=== PATIENT | female | born 1985 | race American Indian/Alaskan Native ===

== ENCOUNTER 2018-05-21 10:07 | Emergency (ER) | payer SELFPAY ==
--- NOTE | 2018-05-21 10:38 | EDM.PDOC ---
ED HPI GENERAL MEDICAL PROBLEM - General Chief Complaint: Abdominal Pain Stated Complaint: STOMACH PAINS [id number] Time Seen by Provider: 05/21/18 10:25 Source of Information: Reports: Patient History Limitations: Reports: No Limitations - History of Present Illness INITIAL COMMENTS - FREE TEXT/NARRATIVE: This 32 yo female patient reports to the ED with increased abdominal pain over the past 4 days. 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 The patient did have chemo and radiation after tumor removal. The patient reports she is normally on steroids, antibiotics and pain medications. The patient reports she recently moved to [place] from [place], but has not been able to establish a primary care facility. The patient reports she has been out of all of her medications for the past 4 days. The patient reports her bowel movements have been mostly mucous. The patient reports she does have an appointment established for next week, but could not wait any longer with her current pain. Duration: Day(s):, Constant, Getting Worse Location: Reports: Abdomen Quality: Reports: Ache, Sharp, Stabbing Severity: Severe Improves with: Reports: None Worsens with: Reports: None Context: Reports: Other Associated Symptoms: Reports: No Other Symptoms Upper Abdomen Pain Score (Numeric/FACES): 10 - Related Data Allergies Allergy/AdvReac Type Severity Reaction Status Date / Time iodine Allergy Rash Verified 05/21/18 11:37 ketorolac [From Toradol] Allergy Itching Verified 05/21/18 11:37 Home Meds: Home Meds Ciprofloxacin HCl [Cipro] 500 mg PO BID 05/21/18 [History] HYDROmorphone [Dilaudid] 2 mg PO Q8H PRN 05/21/18 [History] LORazepam [Ativan] 2 mg PO TID PRN 05/21/18 [History] Ondansetron [Zofran ODT] 4 mg PO Q8HR PRN 05/21/18 [History] fentaNYL [Fentanyl] 1 each TD .Q72HR 05/21/18 [History] metroNIDAZOLE [Flagyl] 500 mg PO QID 05/21/18 [History] ED ROS GENERAL - Review of Systems Review Of Systems: ROS reveals no pertinent complaints other than HPI. ED EXAM, GI/ABD - Physical Exam Exam: See Below Exam Limited By: No Limitations General Appearance: Alert, WD/WN, Moderate Distress Eyes: Bilateral: Normal Appearance, EOMI Ears: Normal External Exam, Normal Canal, Hearing Grossly Normal, Normal TMs Nose: Normal Inspection, Normal Mucosa, No Blood Throat/Mouth: Normal Inspection, Normal Lips, Normal Teeth, Normal Gums, Normal Oropharynx, Normal Voice, No Airway Compromise Head: Atraumatic, Normocephalic Neck: Normal Inspection, Supple, Non-Tender, Full Range of Motion Respiratory/Chest: No Respiratory Distress, Lungs Clear, Normal Breath Sounds, No Accessory Muscle Use, Chest Non-Tender Cardiovascular: Normal Peripheral Pulses, Regular Rate, Rhythm, No Edema, No Gallop, No JVD, No Murmur, No Rub GI/Abdominal Exam: Normal Bowel Sounds, Guarding, Tender (diffuse tenderness) (Female) Exam: Deferred Rectal (Female) Exam: Deferred Back Exam: Normal Inspection, Full Range of Motion, NT Extremities: Normal Inspection, Normal Range of Motion, Non-Tender, Normal Capillary Refill, No Pedal Edema Neurological: Alert, Oriented, CN II-XII Intact, Normal Cognition, Normal Gait, Normal Reflexes, No Motor/Sensory Deficits Psychiatric: Normal Affect, Normal Mood Skin Exam: Warm, Dry, Intact, Normal Color, No Rash Lymphatic: No Adenopathy Course - Vital Signs Last Recorded V/S: Last Vital Signs Temp 36.2 C 05/21/18 10:15 Pulse 87 05/21/18 10:15 Resp 18 05/21/18 10:15 BP 132/65 05/21/18 10:15 Pulse Ox 99 05/21/18 10:15 - Orders/Labs/Meds Orders: Active Orders 24 hr Category Date Time Status fentaNYL [Duragesic] Med 05/21/18 12:30 Ordered 100 mcg TRDERM Q72H Medication Orders Fentanyl (Duragesic) 100 mcg TRDERM Q72H [facility] Labs: Laboratory Tests 05/21/18 05/21/18 05/21/18 Range/Units 10:18 10:18 10:29 WBC (5.0-10.0) 10^3/uL RBC (4.2-5.4) 10^6/uL Hgb (12.0-16.0) g/dL Hct (37.0-47.0) % MCV (80-100) fL MCH (27.0-34.0) pg MCHC (33.0-35.0) g/dL Plt Count (150-450) 10^3/uL Neut % (Auto) (42.2-75.2) % Lymph % (Auto) (20.5-50.1) % Johnston % (Auto) (2-8) % Eos % (Auto) (1.0-3.0) % Baso % (Auto) (0.0-1.0) % Sodium (135-145) mmol/L Potassium (3.6-5.0) mmol/L Chloride (101-111) mmol/L Carbon Dioxide (21.0-31.0) mmol/L Anion Gap BUN (7-18) mg/dL Creatinine (0.6-1.3) mg/dL Est Cr Clr Drug Dosing mL/min Estimated GFR (MDRD) BUN/Creatinine Ratio Glucose (74-105) mg/dL Calcium (8.4-10.2) mg/dl Total Bilirubin (0.2-1.0) mg/dL AST (10-42) IU/L ALT (10-60) IU/L Alkaline Phosphatase (42-121) IU/L Ammonia 18 (11-35) umol/L Total Protein (6.7-8.2) g/dl Albumin (3.2-5.5) g/dl Globulin Albumin/Globulin Ratio Amylase (28-100) U/L Lipase (22-51) U/L Urine Color Yellow (YELLOW) Urine Appearance Clear (CLEAR) Urine pH 5.5 (5.0-9.0) Ur Specific [place] >= 1.030 (1.005-1.030) Urine Protein Negative (NEGATIVE) Urine Glucose (UA) Negative (NEGATIVE) Urine Ketones Negative (NEGATIVE) Urine Occult Blood Trace-intact H (NEGATIVE) Urine Nitrite Negative (NEGATIVE) Urine Bilirubin Negative (NEGATIVE) Urine Urobilinogen 0.2 (0.2-1.0) mg/dL Ur Leukocyte Esterase Negative (NEGATIVE) Urine RBC 5-10 H /HPF Urine WBC 0-5 (0-5/HPF) /HPF Ur Epithelial Cells Moderate H /HPF Urine Bacteria Few (0-FEW/HPF) /HPF Urine Mucus Moderate H /LPF Salicylates mg/dL Urine Opiates Screen Negative (NEGATIVE) Ur Oxycodone Screen Positive H (NEGATIVE) Urine Methadone Screen Negative (NEGATIVE) Acetaminophen ug/mL Ur Barbiturates Screen Negative (NEGATIVE) U Tricyclic Antidepress Negative (NEGATIVE) Ur Phencyclidine Scrn Negative (NEGATIVE) Ur Amphetamine Screen Negative (NEGATIVE) U Methamphetamines Scrn Negative (NEGATIVE) Urine MDMA Screen Negative (NEGATIVE) U Benzodiazepines Scrn Positive H (NEGATIVE) Urine Cocaine Screen Negative (NEGATIVE) U Marijuana (THC) Screen Negative (NEGATIVE) Ethyl Alcohol mg/dL 05/21/18 05/21/18 05/21/18 Range/Units 10:29 10:51 10:51 WBC 11.5 H (5.0-10.0) 10^3/uL RBC 4.72 (4.2-5.4) 10^6/uL Hgb 15.2 (12.0-16.0) g/dL Hct 46.5 (37.0-47.0) % MCV 98.5 (80-100) fL MCH 32.2 (27.0-34.0) pg MCHC 32.7 L (33.0-35.0) g/dL Plt Count 412 (150-450) 10^3/uL Neut % (Auto) 60.6 (42.2-75.2) % Lymph % (Auto) 32.8 (20.5-50.1) % Johnston % (Auto) 5.2 (2-8) % Eos % (Auto) 1.0 (1.0-3.0) % Baso % (Auto) 0.4 (0.0-1.0) % Sodium 138 (135-145) mmol/L Potassium 3.7 (3.6-5.0) mmol/L Chloride 101 (101-111) mmol/L Carbon Dioxide 24.0 (21.0-31.0) mmol/L Anion Gap 16.7 BUN 16 (7-18) mg/dL Creatinine 0.7 (0.6-1.3) mg/dL Est Cr Clr Drug Dosing 106.01 mL/min Estimated GFR (MDRD) > 60 BUN/Creatinine Ratio 22.85 Glucose 113 H (74-105) mg/dL Calcium 8.9 (8.4-10.2) mg/dl Total Bilirubin 0.4 (0.2-1.0) mg/dL AST 35 (10-42) IU/L ALT 46 (10-60) IU/L Alkaline Phosphatase 61 (42-121) IU/L Ammonia (11-35) umol/L Total Protein 7.4 (6.7-8.2) g/dl Albumin 4.1 (3.2-5.5) g/dl Globulin 3.3 Albumin/Globulin Ratio 1.24 Amylase 44 (28-100) U/L Lipase 43 (22-51) U/L Urine Color (YELLOW) Urine Appearance (CLEAR) Urine pH (5.0-9.0) Ur Specific [place] (1.005-1.030) Urine Protein (NEGATIVE) Urine Glucose (UA) (NEGATIVE) Urine Ketones (NEGATIVE) Urine Occult Blood (NEGATIVE) Urine Nitrite (NEGATIVE) Urine Bilirubin (NEGATIVE) Urine Urobilinogen (0.2-1.0) mg/dL Ur Leukocyte Esterase (NEGATIVE) Urine RBC /HPF Urine WBC (0-5/HPF) /HPF Ur Epithelial Cells /HPF Urine Bacteria (0-FEW/HPF) /HPF Urine Mucus /LPF Salicylates < 4 mg/dL Urine Opiates Screen (NEGATIVE) Ur Oxycodone Screen (NEGATIVE) Urine Methadone Screen (NEGATIVE) Acetaminophen < 10 ug/mL Ur Barbiturates Screen (NEGATIVE) U Tricyclic Antidepress (NEGATIVE) Ur Phencyclidine Scrn (NEGATIVE) Ur Amphetamine Screen (NEGATIVE) U Methamphetamines Scrn (NEGATIVE) Urine MDMA Screen (NEGATIVE) U Benzodiazepines Scrn (NEGATIVE) Urine Cocaine Screen (NEGATIVE) U Marijuana (THC) Screen (NEGATIVE) Ethyl Alcohol < 5 mg/dL Meds: Medications Generic Name Dose Route Start Last Admin Trade Name Freq PRN Reason Stop Dose Admin Fentanyl 100 mcg 05/21/18 12:30 Duragesic TRDERM Q72H MARCO Discontinued Medications Generic Name Dose Route Start Last Admin Trade Name Freq PRN Reason Stop Dose Admin Hydromorphone HCl 1 mg 05/21/18 10:39 05/21/18 10:47 Dilaudid IVPUSH 05/21/18 10:40 1 mg ONETIME ONE Administration Hydromorphone HCl 1 mg 05/21/18 11:05 05/21/18 11:14 Dilaudid IVPUSH 05/21/18 11:06 1 mg ONETIME ONE Administration Hydromorphone HCl 1 mg 05/21/18 12:03 05/21/18 12:12 Dilaudid IVPUSH 05/21/18 12:04 1 mg ONETIME ONE Administration Methylprednisolone Sodium Succinate 125 mg 05/21/18 10:39 05/21/18 10:47 Solu-Medrol IVPUSH 05/21/18 10:40 125 mg ONETIME ONE Administration Departure - Departure Time of Disposition: 12:31 Disposition: Home, Self-Care 01 Condition: Fair Clinical Impression: Abdominal pain Qualifiers: Abdominal location: generalized Qualified Code(s): R10.84 - Generalized abdominal pain Crohn's disease, acute Qualifiers: Digestive disease complication type: unspecified complication Qualified Code(s) : K50.919 - Crohn's disease, unspecified, with unspecified complications - Discharge Information *PRESCRIPTION DRUG MONITORING PROGRAM REVIEWED*: Not Applicable *COPY OF PRESCRIPTION DRUG MONITORING REPORT IN PATIENT ANNETTE: Not Applicable Instructions: Abdominal Pain, Adult, [id number] Forms: ED Department Discharge Care Plan Goals: The patient was advised of the examination, lab and CT results during the visit. The patient was given IV fluid, IV solumedrol and IV dilaudid while in the ED. Prior to discharge, a Fentanyl Patch was placed on the patient. The patient was given scripts for Cipro (500 mg) #14 to take 1 by mouth 2 times per day, Metronidazole (500 mg) to take 1 by mouth 4 times per day and Dilaudid (2 mg) #10 to take 1 by mouth every 8 hours as needed. If the patient has any additional symptoms or concerns, the patient should either return to the emergency department or visit her primary care facility. - My Orders Last 24 Hours: My Active Orders 05/21/18 12:30 fentaNYL [Duragesic] 100 mcg TRDERM Q72H - Assessment/Plan Last 24 Hours: My Active Orders 05/21/18 12:30 fentaNYL [Duragesic] 100 mcg TRDERM Q72H
[2018-05-21] MEDS ORDERED: HYDROmorphone 1 MG/ML Syringe IVPUSH ONE ×3 (10:39→12:03)
[2018-05-21] MEDS ORDERED: methylPREDNISolone Sodium Succinate 125 MG/2 ML SDV IVPUSH ONE (10:39)
[2018-05-21 11:21] LABS: ANION GAP 16.7; CHLORIDE,CL 101 mmol/L (101-111); SODIUM,NA 138 mmol/L (135-145)
[2018-05-21 11:43] LABS: ACETAMINOPHEN < 10 ug/mL
--- NOTE | 2018-05-21 12:28 | CT ---
Clinical history: 32-year-old 205 pound female "smoker" with lower abdominal pain. History total hysterectomy for "cervical cancer" ("12 pound pelvic mass removed"); recent hospitalization in [place]. Previous surgical history includes cholecystectomy and appendectomy. Strong family history (mother/father) "colon cancer". Scan technique: Volume acquisition of data unenhanced (history "turned purple" with IV contrast) CT scan abdomen and pelvis obtained while the patient was lying supine on the Siemens multi slice scanner [place], [place]. All data archived in the PACS system for storage, reformatting axial/sagittal/coronal planes and study. Interpretation: 1. Cholecystectomy. Hysterectomy 2. Unenhanced liver, stomach, spleen, pancreas, adrenal glands and kidneys/empty bladder unremarkable. No sign of urolithiasis or obstructive uropathy. 3. No ventral wall hernias, incarcerated bowel, mechanical obstruction, inflammatory "dirty" peritoneal fat, ascites or free air. 4. No pelvic or abdominal mass lesion. No mesenteric or retroperitoneal lymphadenopathy. Normal caliber abdominal aorta. 5. Lumbar spine unremarkable for age and size. 6. Normal cardiac silhouette. Lung bases clear. No free subdiaphragmatic air. CONCLUSION: No sign of malignancy (primary or metastatic); mechanical bowel obstruction; or acute peritonitis. No hernias. Cholecystectomy. Total hysterectomy.
[2018-05-21] MEDS ORDERED: fentaNYL 100 MCG/HR Transdermal Patch TRDERM SCH (12:30)
[2018-05-21] MEDS ORDERED: fentaNYL 50 MCG/HR Transdermal Patch TRDERM ONE (12:45)
== END 2018-05-21 12:50 | disposition home or self-care (01) ==
LOC: DL.ED 10:07
DX: K50.919 Crohn's disease, unspecified, with unspecified complications (principal); Z88.8 Allergy status to other drugs, medicaments and biological substances; Z79.899 Other long term (current) drug therapy
CPT/HCPCS: 36415; 74176; 80053; 80305-QW; 81001; 82140; 82150; 83690; 85025; 96374; 96375; 96376; 99284; A9270-GY; G0480; J1170; J2930

== ENCOUNTER 2018-06-05 11:07 | Emergency (ER) | payer SELFPAY ==
[2018-06-05] MEDS ORDERED: fentaNYL 100 MCG/2 ML SDV IVPUSH ONE (12:13)
[2018-06-05 12:55] LABS: ANION GAP 13.9; CHLORIDE,CL 104 mmol/L (101-111); SODIUM,NA 139 mmol/L (135-145)
--- NOTE | 2018-06-05 14:01 | CT ---
History: 33-year-old 205 pound female "smoker" who presents emergency Department with severe abdominal pain (history Crohn's disease and colitis) and CT scan 21 May 2018 revealed "no sign of malignancy, mechanical bowel obstruction or acute peritonitis. No hernias". Patient has history of appendectomy, cholecystectomy and hysterectomy ("cervical cancer"). Scan technique: Volume acquisition of data unenhanced CT scan of the abdomen and pelvis (IV contrast reaction) while patient was lying supine on the Siemens multi slice scanner [place], [place]. All data archived in the PACS system for storage, reformatting axial/sagittal/coronal planes and study. Interpretation: 1. Hysterectomy. Cholecystectomy. No ventral wall or inguinal hernias. *2. Normal caliber aortoiliac vessels and no sign of mesenteric ischemia, inflammatory "dirty" peritoneal fat) peritonitis), pelvic or abdominal mass lesion, mesenteric or retroperitoneal lymphadenopathy, mechanical bowel obstruction, ascites or free air. 3. Sigmoid diverticulosis. No bowel mucosal wall thickening, pericolonic inflammation, spasm or abscess. No current evidence of inflammatory bowel disease. 4. Normal kidneys. No sign of renal cortical mass lesion, nephrolithiasis or obstructive uropathy. 5. Unenhanced liver, stomach, spleen, pancreas and adrenal glands unremarkable. 6. Generalised mild osteopenia but lumbar spine otherwise unremarkable. No pathologic skeletal lesion, fracture or dislocation. 7. Normal cardiac silhouette. Lung bases clear. CONCLUSION: Sigmoid diverticulosis. Several abdominal surgeries. No acute intraperitoneal abnormality.
[2018-06-05] MEDS ORDERED: HYDROmorphone 1 MG/ML Syringe IVPUSH ONE ×2 (14:12→15:22)
--- NOTE | 2018-06-05 14:12 | EDM.PDOC ---
ED HPI GENERAL MEDICAL PROBLEM - General Chief Complaint: Abdominal Pain Stated Complaint: SEVER ABD PAIN, RECTAL BLOOD Time Seen by Provider: 06/05/18 12:05 Source of Information: Reports: Patient, RN, RN Notes Reviewed History Limitations: Reports: No Limitations - History of Present Illness INITIAL COMMENTS - FREE TEXT/NARRATIVE: Patient presents to ER with complaint of abdominal pain. She states this has been going on x1 month or longer. It has gotten worse since 10 p.m. last night. She took an Ativan without help. She tried Percocet last night. She has also used Fentanyl 100mcg patch and Dilaudid last 5 days ago. She rates the pain 10/ 10 with spasms like contractions. She had fever 3 days ago, diarrhea without blood. She has also had nausea and vomiting. No chest pain or shortness of breath. Onset: Gradual Duration: Getting Worse Location: Reports: Abdomen Quality: Reports: Ache Severity: Severe Improves with: Reports: None Worsens with: Reports: None Associated Symptoms: Reports: No Other Symptoms Abdomen Pain Score (Numeric/FACES): 10 - Related Data Allergies Allergy/AdvReac Type Severity Reaction Status Date / Time iodine Allergy Rash Verified 05/21/18 11:37 ketorolac [From Toradol] Allergy Itching Verified 05/21/18 11:37 Home Meds: Home Meds Ciprofloxacin HCl [Cipro] 500 mg PO BID 05/21/18 [History] HYDROmorphone [Dilaudid] 2 mg PO Q8H PRN 05/21/18 [History] LORazepam [Ativan] 2 mg PO TID PRN 05/21/18 [History] Ondansetron [Zofran ODT] 4 mg PO Q8HR PRN 05/21/18 [History] fentaNYL [Fentanyl] 1 each TD .Q72HR 05/21/18 [History] metroNIDAZOLE [Flagyl] 500 mg PO QID 05/21/18 [History] Past Medical History Gastrointestinal History: Reports: Other (See Below) Other Gastrointestinal History: Crohn's Disease. Upper GI bleed. Colitis Genitourinary History: Reports: Other (See Below) Other Genitourinary History: Ovarian cancer, 12 pound tumor removed 3.5 years ago. 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 ED EXAM, GI/ABD - Physical Exam Exam: See Below Exam Limited By: No Limitations General Appearance: Other (in pain) Eyes: Bilateral: Normal Appearance Ears: Normal External Exam, Normal Canal, Hearing Grossly Normal, Normal TMs Nose: Normal Inspection, Normal Mucosa, No Blood Throat/Mouth: Normal Inspection, Normal Lips, Normal Teeth, Normal Gums, Normal Oropharynx, Normal Voice, No Airway Compromise Head: Atraumatic, Normocephalic Neck: Normal Inspection, Supple, Non-Tender, Full Range of Motion Respiratory/Chest: No Respiratory Distress, Lungs Clear, Normal Breath Sounds, No Accessory Muscle Use, Chest Non-Tender Cardiovascular: Normal Peripheral Pulses, Regular Rate, Rhythm, No Edema, No Gallop, No JVD, No Murmur, No Rub GI/Abdominal Exam: Other (very tender to touch) (Female) Exam: Deferred Rectal (Female) Exam: Other (nolberto blood) Back Exam: Normal Inspection, Full Range of Motion, NT Extremities: Normal Inspection, Normal Range of Motion, Non-Tender, Normal Capillary Refill, No Pedal Edema Neurological: Alert, Oriented, CN II-XII Intact, Normal Cognition, Normal Gait, Normal Reflexes, No Motor/Sensory Deficits Psychiatric: Anxious, Tearful Skin Exam: Warm, Dry, Intact, Normal Color, No Rash Lymphatic: No Adenopathy Course - Vital Signs Last Recorded V/S: Last Vital Signs Temp 97.9 F 06/05/18 12:05 Pulse 115 H 06/05/18 12:05 Resp 20 06/05/18 12:05 BP 136/117 H 06/05/18 12:05 Pulse Ox 99 06/05/18 12:05 - Orders/Labs/Meds Labs: Laboratory Tests 06/05/18 06/05/18 06/05/18 Range/Units 11:32 11:32 12:25 WBC 9.2 (5.0-10.0) 10^3/uL RBC 4.72 (4.2-5.4) 10^6/uL Hgb 15.4 (12.0-16.0) g/dL Hct 46.6 (37.0-47.0) % MCV 98.7 (80-100) fL MCH 32.6 (27.0-34.0) pg MCHC 33.0 (33.0-35.0) g/dL Plt Count 432 (150-450) 10^3/uL Neut % (Auto) 66.3 (42.2-75.2) % Lymph % (Auto) 26.7 (20.5-50.1) % [place] % (Auto) 5.0 (2-8) % Eos % (Auto) 1.6 (1.0-3.0) % Baso % (Auto) 0.4 (0.0-1.0) % Sodium (135-145) mmol/L Potassium (3.6-5.0) mmol/L Chloride (101-111) mmol/L Carbon Dioxide (21.0-31.0) mmol/L Anion Gap BUN (7-18) mg/dL Creatinine (0.6-1.3) mg/dL Est Cr Clr Drug Dosing mL/min Estimated GFR (MDRD) BUN/Creatinine Ratio Glucose (74-105) mg/dL Lactic Acid (0.5-2.2) mmol/L Calcium (8.4-10.2) mg/dl Total Bilirubin (0.2-1.0) mg/dL AST (10-42) IU/L ALT (10-60) IU/L Alkaline Phosphatase (42-121) IU/L Total Protein (6.7-8.2) g/dl Albumin (3.2-5.5) g/dl Globulin Albumin/Globulin Ratio Amylase (28-100) U/L Lipase (22-51) U/L Urine Color Yellow (YELLOW) Urine Appearance Clear (CLEAR) Urine pH 7.0 (5.0-9.0) Ur Specific [place] 1.015 (1.005-1.030) Urine Protein Negative (NEGATIVE) Urine Glucose (UA) Negative (NEGATIVE) Urine Ketones Negative (NEGATIVE) Urine Occult Blood Trace-lysed H (NEGATIVE) Urine Nitrite Negative (NEGATIVE) Urine Bilirubin Negative (NEGATIVE) Urine Urobilinogen 0.2 (0.2-1.0) mg/dL Ur Leukocyte Esterase Negative (NEGATIVE) Urine RBC 0-5 /HPF Urine WBC 0-5 (0-5/HPF) /HPF Ur Epithelial Cells Few /HPF Urine Bacteria Few (0-FEW/HPF) /HPF Urine Opiates Screen Negative (NEGATIVE) Ur Oxycodone Screen Positive H (NEGATIVE) Urine Methadone Screen Negative (NEGATIVE) Ur Barbiturates Screen Negative (NEGATIVE) U Tricyclic Antidepress Negative (NEGATIVE) Ur Phencyclidine Scrn Negative (NEGATIVE) Ur Amphetamine Screen Negative (NEGATIVE) U Methamphetamines Scrn Negative (NEGATIVE) Urine MDMA Screen Negative (NEGATIVE) U Benzodiazepines Scrn Positive H (NEGATIVE) Urine Cocaine Screen Negative (NEGATIVE) U Marijuana (THC) Screen Negative (NEGATIVE) Ethyl Alcohol mg/dL 06/05/18 06/05/18 Range/Units 12:25 12:25 WBC (5.0-10.0) 10^3/uL RBC (4.2-5.4) 10^6/uL Hgb (12.0-16.0) g/dL Hct (37.0-47.0) % MCV (80-100) fL MCH (27.0-34.0) pg MCHC (33.0-35.0) g/dL Plt Count (150-450) 10^3/uL Neut % (Auto) (42.2-75.2) % Lymph % (Auto) (20.5-50.1) % [place] % (Auto) (2-8) % Eos % (Auto) (1.0-3.0) % Baso % (Auto) (0.0-1.0) % Sodium 139 (135-145) mmol/L Potassium 3.9 (3.6-5.0) mmol/L Chloride 104 (101-111) mmol/L Carbon Dioxide 25.0 (21.0-31.0) mmol/L Anion Gap 13.9 BUN 8 (7-18) mg/dL Creatinine 0.5 L (0.6-1.3) mg/dL Est Cr Clr Drug Dosing 147.01 mL/min Estimated GFR (MDRD) > 60 BUN/Creatinine Ratio 16.00 Glucose 114 H (74-105) mg/dL Lactic Acid 1.1 (0.5-2.2) mmol/L Calcium 9.4 (8.4-10.2) mg/dl Total Bilirubin 0.6 (0.2-1.0) mg/dL AST 24 (10-42) IU/L ALT 22 (10-60) IU/L Alkaline Phosphatase 59 (42-121) IU/L Total Protein 7.7 (6.7-8.2) g/dl Albumin 4.5 (3.2-5.5) g/dl Globulin 3.2 Albumin/Globulin Ratio 1.41 Amylase 50 (28-100) U/L Lipase 30 (22-51) U/L Urine Color (YELLOW) Urine Appearance (CLEAR) Urine pH (5.0-9.0) Ur Specific [place] (1.005-1.030) Urine Protein (NEGATIVE) Urine Glucose (UA) (NEGATIVE) Urine Ketones (NEGATIVE) Urine Occult Blood (NEGATIVE) Urine Nitrite (NEGATIVE) Urine Bilirubin (NEGATIVE) Urine Urobilinogen (0.2-1.0) mg/dL Ur Leukocyte Esterase (NEGATIVE) Urine RBC /HPF Urine WBC (0-5/HPF) /HPF Ur Epithelial Cells /HPF Urine Bacteria (0-FEW/HPF) /HPF Urine Opiates Screen (NEGATIVE) Ur Oxycodone Screen (NEGATIVE) Urine Methadone Screen (NEGATIVE) Ur Barbiturates Screen (NEGATIVE) U Tricyclic Antidepress (NEGATIVE) Ur Phencyclidine Scrn (NEGATIVE) Ur Amphetamine Screen (NEGATIVE) U Methamphetamines Scrn (NEGATIVE) Urine MDMA Screen (NEGATIVE) U Benzodiazepines Scrn (NEGATIVE) Urine Cocaine Screen (NEGATIVE) U Marijuana (THC) Screen (NEGATIVE) Ethyl Alcohol < 5 mg/dL Meds: Medications Discontinued Medications Generic Name Dose Route Start Last Admin Trade Name Delilah PRN Reason Stop Dose Admin Fentanyl 100 mcg 06/05/18 12:13 06/05/18 13:00 Sublimaze IVPUSH 06/05/18 12:14 100 mcg ONETIME ONE Administration Hydromorphone HCl 1 mg 06/05/18 14:12 06/05/18 14:32 Dilaudid IVPUSH 06/05/18 14:13 1 mg ONETIME ONE Administration Hydromorphone HCl 1 mg 06/05/18 15:22 06/05/18 15:27 Dilaudid IVPUSH 06/05/18 15:23 1 mg ONETIME ONE Administration - Radiology Interpretation Free Text/Narrative:: CT Abdomen/Pelvis: Sigmoid diverticulosis. Several abdominal surgeries. No acute intraperitoneal abnormality See rad report Departure - Departure Time of Disposition: 16:14 Disposition: DC/Tfer to Acute Hospital 02 Condition: Fair Clinical Impression: Abdominal pain Qualifiers: Abdominal location: generalized Qualified Code(s): R10.84 - Generalized abdominal pain Crohn's disease, acute Qualifiers: Digestive disease complication type: unspecified complication Qualified Code(s) : K50.919 - Crohn's disease, unspecified, with unspecified complications - Discharge Information *PRESCRIPTION DRUG MONITORING PROGRAM REVIEWED*: Yes *COPY OF PRESCRIPTION DRUG MONITORING REPORT IN PATIENT ANNETTE: No Referrals: PCP,None [Primary Care Provider] - Forms: ED Department Discharge, Interfacility Transfer BABS
== END 2018-06-05 15:48 ==
LOC: DL.ED 11:07
DX: K50.919 Crohn's disease, unspecified, with unspecified complications (principal); K57.30 Diverticulosis of large intestine without perforation or abscess without bleeding; Z91.048 Other nonmedicinal substance allergy status; Z88.5 Allergy status to narcotic agent; Z79.899 Other long term (current) drug therapy
CPT/HCPCS: 36415; 74176; 80053; 80305; 81001; 82150; 83605; 83690; 85025; 87040; 96374; 96375; 96376; 99285; G0480; J1170; J3010